=== PATIENT | female | born 2000 | race Two or more races ===

== ENCOUNTER 2025-03-29 13:59 | Emergency (ER) | payer MEDICAID, OTHER ==
[~2025-03-29] VITALS: Ht 162.6 cm; Wt 49.4 kg
[2025-03-29 14:04] VITALS: BP 104/71; PULSE 105; RESP 15; TEMP 98.9; O2SAT 97
== END 2025-03-29 17:39 | disposition left against medical advice (07) ==
LOC: ER 13:59
DX: M54.2 Cervicalgia (principal); Z53.21 Procedure and treatment not carried out due to patient leaving prior to being seen by health care provider; Y08.89XA Assault by other specified means, initial encounter; Y93.89 Activity, other specified; Y92.89 Other specified places as the place of occurrence of the external cause; Y99.8 Other external cause status